=== PATIENT | female | born 1985 | race Caucasian/White ===

== ENCOUNTER 2024-10-19 10:36 | Emergency (ER) | payer OTHER, SELFPAY ==
[2024-10-19 10:37] VITALS: BP 143/93; PULSE 85; RESP 16; TEMP 36.7; O2SAT 100; BMI 23.6
--- NOTE | 2024-10-19 10:40 | RAD_ITS ---
STUDY: X-RAY - RIGHT HAND REASON FOR EXAM: Female, 39 years old. Fifth metacarpal pain. TECHNIQUE: 3 view(s) of the hand. COMPARISON: None. FINDINGS: Normal radiocarpal articulation. Normal distal radioulnar joint. Normal visualized carpal bones. Normal carpal articulations Normal carpometacarpal articulation of the thumb. Normal second through fifth carpometacarpal joints. Normal metacarpi. Normal metacarpophalangeal joint of the thumb. Normal interphalangeal joint of the thumb. Normal proximal and distal phalanges of the thumb. Normal metacarpophalangeal joints of the second through fifth fingers. Normal proximal and distal interphalangeal joints of the second through fifth fingers. Normal phalanges of the second through fifth fingers. The soft tissue structures are unremarkable. RAD/Hand Min 3 Views IMPRESSION: Normal x-ray examination of the hand. Electronically Signed: Liu Stoddard MD at 11:02 EST ,
--- NOTE | 2024-10-19 10:52 | EDS_ITS ---
HPI History of Present Illness Chief Complaint: Upper Extremity Injury PFSH PFSH Allergy/AdvReac Type Severity Reaction Status Date / Time No Known Allergies Allergy Verified 10/19/24 10:38 Social History Smoking Status: Never smoker EXAM Physical Exam Const Vital Signs: 10/19/24 10:37 Temperature 98.1 F Temperature Source Temporal Pulse Rate 85 Respiratory Rate 16 Blood Pressure 143/93 H Blood Pressure Mean 109 Pulse Ox 100 Oxygen Delivery Method [place] [facility] [place] Medical decision making narrative: HISTORY OF PRESENT ILLNESS: 39-year-old female presents with right hand pain. Note she smashed her right hand between a table and door just prior to arrival. REVIEW OF SYSTEMS: Pertinent positives: Right hand pain Pertinent negatives: Numbness, tingling, loss of sensation PHYSICAL EXAM: Nursing triage notes reviewed, Vital signs reviewed Constitutional: please see mdm Extremities: No edema, TTP over fourth and fifth carpal bones Neuro: Intact 5/5 strength with ok sign (median), intact finger abduction (ulnar) intact wrist extension (radial n). Intact sensation in the radial, ulnar, and median nerve distributions. Skin: No rash or lesions noted MEDICAL DECISION MAKING: Chief Complaint: Right hand pain External records reviewed: Reviewed prior imaging Factors affecting care: none Social determinants of health: none History obtained from others: none Consults: none [facility] Narrative: The patient was initially hemodynamically stable, afebrile and nontoxic- appearing. Right upper extremity is neurovascularly intact. I considered the following differential diagnosis: Contusion, hand fracture, dislocation X-ray was obtained per triage protocol. ALL IMAGES (IF OBTAINED) HAVE BEEN PERSONALLY REVIEWED AND INTERPRETED BY MYSELF. X-ray was read, reviewed, interpreted personally myself showed no evidence of acute fracture dislocation The patient was appropriate discharge home. The patient and/or family, caregivers express understanding. The patient and/or family, caregivers agrees with the plan. Shared decision making: I will have a discussion with the patient and or visitors regarding risk/benefits of further testing or admission. They will be made aware of of the risk/benefits inherent in this decision they will be given the opportunity to voice understanding. Total critical care time today provided was at least 0 minutes. This excludes separately billable procedures. Critical care time (if documented) is secondary to the patient having high probability of clinically significant/life threatening deterioration in the patient's condition which required my urgent intervention. Impression: 1. Acute hand contusion Dispo: Discharge home This note was generated with [employer] dictation software. It may contain incorrect words, spelling, and punctuation that were not noted in review of the chart prior to signing. Discharge Plan Triage Chief Complaint: Upper Extremity Injury ED Provider: Yazan Nicolas Dx/Rx/DC Orders Instructions: ED Hand Contusion Stand Alone Forms: ED Work / School Excuse Activity Restrictions/Additional Instructions: Thank you for trusting us with your care today! The x-ray of your hand was negative for a broken bone or dislocation. You are likely suffering from a contusion (bruise). This will improve with time. There is no specific treatment other than pain control and cryotherapy (ice therapy). Please take Tylenol (2 pills, 650 mg), ibuprofen (2 pills, 400 mg) every 6 hours as needed for pain and fever control. Please return to the emergency department if your symptoms change or worsen. Please follow with your primary care physician for further outpatient evaluation and management. Print Language: Malay Disposition Disposition: Home, Self Care
[2024-10-19] MEDS: Acetaminophen 325 MG Tablet 650 MG PO (11:14)
[2024-10-19] MEDS: Ibuprofen 200 MG Tablet 400 MG PO (11:15)
== END 2024-10-19 11:28 | disposition home or self-care (01) ==
LOC: ED 11:25
PROVIDERS: Emergency Provider Emergency Medicine; PCP Nurse Practitioner Adult Health; Visit Provider Emergency Medicine
DX: S60.221A Contusion of right hand, initial encounter (principal); W23.0XXA Caught, crushed, jammed, or pinched between moving objects, initial encounter
CPT/HCPCS: 73130; 99283